=== PATIENT | female | born 1990 | race Caucasian/White ===

== ENCOUNTER 2018-09-17 11:09 | Outpatient (CLI) | payer OTHER | END 2018-09-17 11:26 | disposition home or self-care (01) | LOC: SONOGRAMA 11:09 → MAMO-SONO 11:15 → SONOGRAMA 11:26 | DX: N84.0 Polyp of corpus uteri (principal) ==

== ENCOUNTER 2019-01-14 05:53 | Day surgery (SDC) | payer OTHER ==
[2019-01-14] MEDS ORDERED: Tylenol #3 PO (10:00)
[2019-01-14] MEDS ORDERED: DOXYCYCLINE HY100 M3 PO (10:00)
== END 2019-01-14 14:00 | disposition home or self-care (01) ==
LOC: CIR.AMB 05:53
DX: N84.0 Polyp of corpus uteri (principal); D25.0 Submucous leiomyoma of uterus

== ENCOUNTER 2023-03-27 09:18 | Day surgery (SDC) | payer OTHER ==
[~2023-03-27 09:18] MED LIST: DOXYCYCLINE HY100 M3 PO; Tylenol #3 PO
[2023-03-27] MEDS ORDERED: NAPR500T14 PO (11:21)
[2023-03-27] MEDS ORDERED: MORGIDOX100 MG PO (11:21)
== END 2023-03-27 16:25 | disposition home or self-care (01) ==
LOC: CIR.AMB 09:18
PROVIDERS: ATTEND Obstetrics & Gynecology
DX: D25.0 Submucous leiomyoma of uterus (principal); N93.8 Other specified abnormal uterine and vaginal bleeding; N84.0 Polyp of corpus uteri; F12.90 Cannabis use, unspecified, uncomplicated